=== PATIENT | female | born 1990 | race African-American/Black ===

== ENCOUNTER 2023-02-05 21:35 | Emergency (ER) | payer SELFPAY ==
[~2023-02-05] VITALS: Ht 172.7 cm; Wt 91.0 kg
[2023-02-05 21:50] VITALS: O2SAT 99
[2023-02-05] MEDS ORDERED: ONDANSETRON HCL 4MG/2ML INJ IV ONE (22:15)
[2023-02-05] MEDS ORDERED: SODIUM CHLORIDE 0.9% 1,000 ML IV ONE (22:15)
[2023-02-05] MEDS ORDERED: MORPHINE SULFATE 4 MG/ML CPJ (NOT FOR IM USE) IV ONE ×2 (22:15→23:30)
[2023-02-05 22:49] LABS: BASOPHILS % 0.4 % (0.0-2.0); EOSINOPHILS % 2.6 % (0.0-5.0); HEMATOCRIT. 37.9 % (36.0-48.0); HEMOGLOBIN. 12.9 g/dL (12.0-16.0); LYMPHOCYTES % 16.2 % (20.0-50.0); MEAN CORPUSCULAR HEMOGLOBIN 29.3 pg (28.0-32.0); MEAN CORPUSCULAR VOLUME 86.2 fL (81.0-99.0); MEAN PLATELET VOLUME 7.5 fl (7.4-10.4); MONOCYTES % 6.2 % (2.0-8.0); NEUTROPHILS % 74.6 % (40.0-76.0); PLATELET 293 x1000/uL (130-400); RED BLOOD CELL COUNT 4.39 mill/uL (4.2-5.4); RED CELL DISTRIBUTION WIDTH 12.8 % (11.6-14.6); WHITE BLOOD COUNT 11.1 x1000/uL (4.5-11.0)
[2023-02-05 23:05] LABS: CHLORIDE 108 mEq/L (98-107); INDEX HEMOLYSI 1 (1-3); INDEX ICTERIC 1 (1-4); INDEX LIPEMIC 1 (1-3); POTASSIUM 3.3 mEq/L (3.5-5.1); SODIUM 138 mEq/L (136-145)
[2023-02-05 23:07] LABS: ALBUMIN 3.8 g/dL (3.4-5.0)
[2023-02-05 23:31] LABS: ALANINE AMINOTRANSFERASE 14 IU/L (13-61); ASPARTATE AMINOTRANSFERASE 12 IU/L (15-37); B-HCG QUANTITATIVE 6998 mIU/mL (<3); BILIRUBIN TOTAL 0.3 mg/dL (0.1-1.0); CALCIUM 9.1 mg/dL (8.5-10.1); CARBON DIOXIDE 20 mEq/L (21-32); CREATININE 0.8 mg/dL (0.6-1.3); GLUCOSE 104 mg/dL (70-105); PROTEIN TOTAL 8.2 g/dL (6.0-8.3); UREA NITROGEN BLOOD 12 mg/dL (7-21)
[2023-02-06] MEDS ORDERED: MISOPROSTOL 200MCG TABLET PO ONE
[2023-02-06] MEDS ORDERED: HYDR-4001 MT (01:41)
[2023-02-06 02:08] VITALS: BP 121/72; PULSE 83; RESP 15; TEMP 98.9
== END 2023-02-06 02:09 | disposition home or self-care (01) ==
LOC: ER 21:35 → EDBD 21:35 → ER 02-06 02:09
DX: O03.4 Incomplete spontaneous abortion without complication (principal)
CPT/HCPCS: 80053; 84702; 85025; 86850; 86900; 86901; 36415; 76801; 76817; 96361; 96374; 96375; 96376; 99285; J2405; J2270; J7030; Z7610 ×2